=== PATIENT | male | born 1945 | race Caucasian/White ===

== ENCOUNTER 2017-06-28 07:36 | Inpatient (IN) | payer MEDICARE, OTHER ==
[~2017-06-28] VITALS: Ht 172.7 cm; Wt 83.7 kg
[~2017-06-28 07:36] MED LIST: ASPI81TA42 PO; ATEN-187 PO; CALC-895 PO; FURO40 PO; HYDR25TA84 PO; ISOS60TA4 PO; LISI-618 PO
[2017-06-28] MEDS ORDERED: ASPIRIN 81 MG CHEWABLE TABLET PO ONE (08:15)
[2017-06-28 08:23] LABS: BASOPHILS % (AUTO) 0.6 % (0.0-2.0); EOSINOPHILS % (AUTO) 2.5 % (1.0-6.0); HEMATOCRIT 26.2 % (41-53); LYMPHOCYTES # (AUTO) 0.3 K/uL (1.0-4.8); LYMPHOCYTES % (AUTO) 5.1 % (22.0-44.0); MEAN CORPUSCULAR HEMOGLOBIN 31.4 pg (26.0-34.0); MEAN CORPUSCULAR HGB CONC 34.4 G/dL (31.0-37.0); MEAN CORPUSCULAR VOLUME 91 fL (80-100); MONOCYTES # (AUTO) 0.2 K/uL (0.1-1.0); MONOCYTES % (AUTO) 3.4 % (2.0-9.0); NEUTROPHILS # (AUTO) 5.5 K/uL (1.8-7.7); PLATELET COUNT (AUTO) 149 K/uL (150-450); RED BLOOD CELL COUNT(AUTO) 2.87 MIL/uL (4.50-5.90); RED CELL DISTRIBUTION WIDTH 15.6 % (11.5-14.5); WHITE BLOOD COUNT (AUTO) 6.2 K/uL (4.5-11.0)
[2017-06-28 08:26] LABS: NEUTROPHILS % (AUTO) 88.4 % (40.0-70.0)
[2017-06-28 08:31] LABS: ANION GAP 9 mmol/L (8-16); CALCIUM, TOTAL 8.3 mg/dL (8.8-10.5); CARBON DIOXIDE 23 mmol/L (22-29); CHLORIDE 104 mmol/L (98-107); CREATININE 2.28 mg/dL (0.60-1.30); GLOMERULAR FILTR. RATE CALC 29 mL/min (>60); POTASSIUM 3.7 mmol/L (3.5-5.1); SODIUM SERUM 136 mmol/L (136-145); UREA NITROGEN, BLOOD 46 mg/dL (7-18)
[2017-06-28 09:00] LABS: ALANINE AMINOTRANSFERASE 22 U/L (12-78); ALBUMIN 2.9 g/dL (3.4-5.0); ASPARTATE AMINOTRANSFERASE 33 U/L (15-37); BILIRUBIN,TOTAL 1.3 mg/dL (0.1-1.0); CREATINE KINASE MB 1.3 ng/mL (0-5); CREATINE KINASE, TOTAL 107 U/L (39-308); TOTAL PROTEIN, SERUM 7.4 g/dL (6.4-8.2)
[2017-06-28 09:01] LABS: B-TYPE NATRIURETIC PEPTIDE 352 pg/mL (0-100)
[2017-06-28] MEDS ORDERED: METO25 PO (09:48)
[2017-06-28] MEDS ORDERED: 0.9% SODIUM CHLORIDE 10 ML SYRINGE IVP PRN (11:00)
[2017-06-28] MEDS ORDERED: ONDANSETRON HCL 4 MG/2 ML VIAL IVP PRN (11:00)
[2017-06-28 11:18] LABS: APPEARANCE,URINE CLOUDY (CLEAR); GLUCOSE, URINE (UA) NEGATIVE (NEGATIVE); KETONES,URINE NEGATIVE (NEGATIVE); LEUKOCYTE ESTERASE ,URINE NEGATIVE (NEGATIVE); OCCULT BLOOD,URINE MODERATE (NEGATIVE); PH,URINE 5.5 (5.0-8.0); PROTEIN,URINE POS 1+ (NEGATIVE)
[2017-06-28 11:26] LABS: ADD UA MICROSCOPIC YES
[2017-06-28 11:28] LABS: SQUAMOUS EPITHELIAL CELL,UR Few /LPF (None Seen)
[2017-06-28 11:29] LABS: RBC,URINE 26-50 /HPF (0-2); WBC,URINE 0-2 /HPF (0-5)
[2017-06-28 11:45] VITALS: BP 139/102
[2017-06-28] MEDS: ACETAMINOPHEN 325 MG TABLET PO PRN ×2 (12:19→16:52)
[2017-06-28 15:26] VITALS: BP 115/61
[2017-06-28 16:48] VITALS: BP 130/60
[2017-06-28 19:32] VITALS: BP 121/63
[2017-06-28] MEDS: ISOSORBIDE MONONITRATE 60 MG ER TABLET PO SCH (20:30)
[2017-06-28] MEDS ORDERED: HYDR-2924 PO (20:35)
[2017-06-28] MEDS ORDERED: OxyCODONE HCL/ACETAMINOPHEN 5-325 MG TABLET PO PRN ×2 (20:45)
[2017-06-28] MEDS: METOPROLOL TARTRATE 25 MG TABLET PO SCH (20:54)
[2017-06-28] MEDS: ASPIRIN 81 MG EC TABLET PO SCH (20:55)
[2017-06-28] MEDS: LISINOPRIL 20 MG TABLET PO SCH (20:55)
[2017-06-28] MEDS: TEMAZEPAM 15 MG CAPSULE PO PRN (20:55)
[2017-06-28] MEDS ORDERED: NITROGLYCERIN 2% (1 GM=INCH) PACKET TP PRN (21:15)
[2017-06-28] MEDS ORDERED: MORPHINE SULFATE 2 MG/ML SYRINGE IVP PRN (21:15)
[2017-06-28] MEDS ORDERED: ACETAMINOPHEN 325 MG TABLET PO PRN (21:15)
[2017-06-28] MEDS ORDERED: NITROGLYCERIN 0.4 MG SUBLINGUAL TABLET #25 SL PRN (21:15)
[2017-06-28] MEDS: HydrALAZINE HCL 50 MG TABLET PO SCH (21:16)
[2017-06-28] MEDS: CALCIUM OYSTER SHELL 250 MG-VIT D3 125 UNITS TABLET PO SCH (21:17)
[2017-06-29 00:15] VITALS: BP 121/64
[2017-06-29 05:51] VITALS: BP 144/74
[2017-06-29 06:16] LABS: BASOPHILS # (AUTO) 0.04 K/uL (0.00-0.20); BASOPHILS % (AUTO) 0.8 % (0.0-2.0); EOSINOPHILS % (AUTO) 3.91 % (1.0-6.0); HEMATOCRIT 23.3 % (41-53); HEMOGLOBIN 8.1 g/dL (13.5-17.5); LYMPHOCYTES # (AUTO) 0.4 K/uL (1.0-4.8); LYMPHOCYTES % (AUTO) 7.3 % (22.0-44.0); MEAN CORPUSCULAR HEMOGLOBIN 31.3 pg (26.0-34.0); MEAN CORPUSCULAR HGB CONC 34.6 G/dL (31.0-37.0); MEAN CORPUSCULAR VOLUME 90 fL (80-100); MONOCYTES # (AUTO) 0.2 K/uL (0.1-1.0); MONOCYTES % (AUTO) 4.1 % (2.0-9.0); NEUTROPHILS # (AUTO) 4.3 K/uL (1.8-7.7); PLATELET COUNT (AUTO) 128 K/uL (150-450); RED BLOOD CELL COUNT(AUTO) 2.57 MIL/uL (4.50-5.90); RED CELL DISTRIBUTION WIDTH 15.9 % (11.5-14.5); WHITE BLOOD COUNT (AUTO) 5.1 K/uL (4.5-11.0)
[2017-06-29 06:39] LABS: CALCIUM, TOTAL 8.8 mg/dL (8.8-10.5); CHOL/HDL RATIO 2.4 (4.2-7.3); CREATININE 2.27 mg/dL (0.60-1.30); POTASSIUM 4.6 mmol/L (3.5-5.1)
[2017-06-29 07:28] VITALS: BP 145/70
[2017-06-29] MEDS: PANTOPRAZOLE SODIUM 40 MG/VIAL IVP SCH (09:14)
[2017-06-29] MEDS: CALCIUM OYSTER SHELL 250 MG-VIT D3 125 UNITS TABLET PO SCH ×2 (09:15→21:14)
[2017-06-29] MEDS: LISINOPRIL 20 MG TABLET PO SCH (09:15)
[2017-06-29] MEDS: HydrALAZINE HCL 50 MG TABLET PO SCH (09:15)
[2017-06-29] MEDS: ISOSORBIDE MONONITRATE 60 MG ER TABLET PO SCH (09:15)
[2017-06-29] MEDS: ASPIRIN 81 MG EC TABLET PO SCH (09:16)
[2017-06-29 11:28] VITALS: BP 122/61
[2017-06-29] MEDS ORDERED: SODIUM CHLORIDE 0.9% 1,000 ML IV ONE (11:30)
[2017-06-29] MEDS: METOPROLOL TARTRATE 25 MG TABLET PO SCH ×2 (11:48→21:14)
[2017-06-29 15:53] VITALS: BP 157/81
[2017-06-29 16:23] LABS: GLUCOSE, URINE (UA) NEGATIVE (NEGATIVE); KETONES,URINE NEGATIVE (NEGATIVE); LEUKOCYTE ESTERASE ,URINE NEGATIVE (NEGATIVE); OCCULT BLOOD,URINE MODERATE (NEGATIVE); PH,URINE 5.5 (5.0-8.0); PROTEIN,URINE POS 1+ (NEGATIVE)
[2017-06-29 16:29] LABS: APPEARANCE,URINE HAZY (CLEAR)
[2017-06-29 16:30] LABS: RBC,URINE 26-50 /HPF (0-2); WBC,URINE None Seen /HPF (0-5)
[2017-06-29 19:15] VITALS: BP 130/70
[2017-06-29] MEDS: TEMAZEPAM 15 MG CAPSULE PO PRN (22:29)
[2017-06-30] VITALS (13 sets, daily range): BP systolic 138–174; BP diastolic 66–93
[2017-06-30 06:01] LABS: BASOPHILS % (AUTO) 0.6 % (0.0-2.0); EOSINOPHILS % (AUTO) 4.7 % (1.0-6.0); HEMATOCRIT 22.9 % (41-53); HEMOGLOBIN 7.8 g/dL (13.5-17.5); LYMPHOCYTES # (AUTO) 0.5 K/uL (1.0-4.8); LYMPHOCYTES % (AUTO) 11.6 % (22.0-44.0); MEAN CORPUSCULAR HEMOGLOBIN 31.3 pg (26.0-34.0); MEAN CORPUSCULAR HGB CONC 34.2 G/dL (31.0-37.0); MEAN CORPUSCULAR VOLUME 91 fL (80-100); MONOCYTES # (AUTO) 0.3 K/uL (0.1-1.0); MONOCYTES % (AUTO) 6.7 % (2.0-9.0); NEUTROPHILS # (AUTO) 3.6 K/uL (1.8-7.7); NEUTROPHILS % (AUTO) 76.4 % (40.0-70.0); PLATELET COUNT (AUTO) 144 K/uL (150-450); RED CELL DISTRIBUTION WIDTH 15.7 % (11.5-14.5); WHITE BLOOD COUNT (AUTO) 4.7 K/uL (4.5-11.0)
[2017-06-30 06:42] LABS: CALCIUM, TOTAL 8.4 mg/dL (8.8-10.5); CREATININE 2.28 mg/dL (0.60-1.30); MAGNESIUM 1.9 mg/dL (1.80-2.40); PHOSPHORUS 3.8 mg/dL (2.5-4.9); POTASSIUM 4.4 mmol/L (3.5-5.1)
[2017-06-30] MEDS ORDERED: SODIUM CHLORIDE 0.9% 250 ML IV ONE (09:07)
[2017-06-30] MEDS: PANTOPRAZOLE SODIUM 40 MG/VIAL IVP SCH (09:08)
[2017-06-30] MEDS: ASPIRIN 81 MG EC TABLET PO SCH (09:08)
[2017-06-30] MEDS: METOPROLOL TARTRATE 25 MG TABLET PO SCH (09:08)
[2017-06-30] MEDS: CALCIUM OYSTER SHELL 250 MG-VIT D3 125 UNITS TABLET PO SCH (09:09)
[2017-06-30] MEDS ORDERED: FUROSEMIDE 20 MG/2 ML VIAL IVP ONE (14:00)
== END 2017-06-30 17:15 | disposition home or self-care (01) | DRG 313 ==
LOC: EDUNIT# 07:36 → EMS 07:37 → 5S 10:33
PROVIDERS: ADMIT Internal Medicine; ATTEND Internal Medicine
PROC: 30233N1 Transfusion of Nonautologous Red Blood Cells into Peripheral Vein, Percutaneous Approach (ICD-10-PCS; principal; 2017-06-30)
DX: R07.89 Other chest pain (principal); I25.10 Atherosclerotic heart disease of native coronary artery without angina pectoris; E43 Unspecified severe protein-calorie malnutrition; N18.4 Chronic kidney disease, stage 4 (severe); I13.0 Hypertensive heart and chronic kidney disease with heart failure and stage 1 through stage 4 chronic kidney disease, or unspecified chronic kidney disease; D63.8 Anemia in other chronic diseases classified elsewhere; I50.9 Heart failure, unspecified; N28.9 Disorder of kidney and ureter, unspecified; Z88.0 Allergy status to penicillin; I86.8 Varicose veins of other specified sites; K74.60 Unspecified cirrhosis of liver; M19.90 Unspecified osteoarthritis, unspecified site; N20.0 Calculus of kidney; N40.0 Benign prostatic hyperplasia without lower urinary tract symptoms; Z79.82 Long term (current) use of aspirin; Z79.899 Other long term (current) drug therapy; Z87.891 Personal history of nicotine dependence; Z91.14 Patient's other noncompliance with medication regimen
CPT/HCPCS: 76770; 82271; 82570; 83735; 84100; 84156; 84300; 84540; 86850; 86900; 86901; 86920; 93005; 93306; 99291; C9113; J1940; J7050; P9016

== ENCOUNTER 2017-07-02 15:10 | Emergency (ER) | payer MEDICARE, OTHER ==
[~2017-07-02] VITALS: Ht 170.2 cm; Wt 77.3 kg
[~2017-07-02 15:10] MED LIST changes: -ATEN-187 PO; -FURO40 PO; -HYDR25TA84 PO; -LISI-618 PO; +METO25 PO
[2017-07-02 15:45] LABS: BASOPHILS % (AUTO) 0.5 % (0.0-2.0); EOSINOPHILS % (AUTO) 4.4 % (1.0-6.0); HEMATOCRIT 27.3 % (41-53); HEMOGLOBIN 9.3 g/dL (13.5-17.5); LYMPHOCYTES # (AUTO) 0.6 K/uL (1.0-4.8); LYMPHOCYTES % (AUTO) 9.5 % (22.0-44.0); MEAN CORPUSCULAR HEMOGLOBIN 30.8 pg (26.0-34.0); MEAN CORPUSCULAR HGB CONC 34.1 G/dL (31.0-37.0); MEAN CORPUSCULAR VOLUME 90 fL (80-100); MONOCYTES # (AUTO) 0.5 K/uL (0.1-1.0); MONOCYTES % (AUTO) 7.9 % (2.0-9.0); NEUTROPHILS # (AUTO) 4.5 K/uL (1.8-7.7); NEUTROPHILS % (AUTO) 77.7 % (40.0-70.0); PLATELET COUNT (AUTO) 181 K/uL (150-450); RED BLOOD CELL COUNT(AUTO) 3.02 MIL/uL (4.50-5.90); RED CELL DISTRIBUTION WIDTH 15.5 % (11.5-14.5); WHITE BLOOD COUNT (AUTO) 5.8 K/uL (4.5-11.0)
[2017-07-02 15:56] LABS: CALCIUM, TOTAL 8.4 mg/dL (8.8-10.5); CREATININE 2.34 mg/dL (0.60-1.30); POTASSIUM 4.5 mmol/L (3.5-5.1)
[2017-07-02 16:02] LABS: ALBUMIN 2.6 g/dL (3.4-5.0); BILIRUBIN,TOTAL 0.7 mg/dL (0.1-1.0); TOTAL PROTEIN, SERUM 7.9 g/dL (6.4-8.2)
[2017-07-02 17:25] VITALS: BP 157/89
== END 2017-07-02 17:27 | disposition home or self-care (01) ==
LOC: EMS 15:12
DX: R07.89 Other chest pain (principal); I12.9 Hypertensive chronic kidney disease with stage 1 through stage 4 chronic kidney disease, or unspecified chronic kidney disease; N18.9 Chronic kidney disease, unspecified; D64.9 Anemia, unspecified; Z88.0 Allergy status to penicillin; Z79.82 Long term (current) use of aspirin
CPT/HCPCS: 93005; 99285